=== PATIENT | female | born 1965 | race Hispanic/Latino ===

== ENCOUNTER 2019-06-04 17:51 | Emergency (ER) | payer OTHER ==
--- NOTE | 2019-06-04 18:59 | RAD REPORT ---
EXAM DESCRIPTION: RAD - Shoulder Left 2 View - 06/04/2019 6:55 pm CLINICAL HISTORY: PAIN COMPARISON: No comparisons FINDINGS: No fracture or dislocation seen.
--- NOTE | 2019-06-04 19:20 | ER ---
Nurse's Notes [facility] Name: Karie Vidal Age: 54 yrs Sex: Female : 1965 Arrival Date: 06/04/2019 Time: 17:54 Bed 30 Private MD: Nico Mcdermott Diagnosis: Fall on same level from slipping, tripping and stumbling;Pain in left shoulder Presentation: 06/04 18:13 Presenting complaint: Patient states: " My grandson was under my feet and I fell, I ph landed on my knees and I felt something pop in my L shoulder." C/O L shoulder pain, decreased ROM in shoulder, no obvious deformity. Transition of care: patient was not received from another setting of care. Onset of symptoms was June 04, 2019. Risk Assessment: Do you want to hurt yourself or someone else? Patient reports no desire to harm self or others. Initial Sepsis Screen: Does the patient meet any 2 criteria? No. Patient's initial sepsis screen is negative. Does the patient have a suspected source of infection? No. Patient's initial sepsis screen is negative. 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 18:13 Method Of Arrival: Ambulatory ph 18:13 Acuity: ALETA 4 ph Historical: - Allergies: 18:16 PENICILLINS; ph - PMHx: 18:16 GERD; Headaches; TIA; Hypertension; Hyperlipidemia; ph - PSHx: 18:16 ; gastric sleeve; ph Assessment: 19:33 Reassessment: Patient appears in no apparent distress at this time. Patient is alert, ca1 oriented x 3, equal unlabored respirations, skin warm/dry/pink. Vital Signs: 18:16 BP 127 / 85; Pulse 68; Resp 18; Temp 97.9; Pulse Ox 98% on R/A; Weight 108.86 kg; ph Height 5 ft. 6 in. (167.64 cm); Pain 3/10; 19:33 BP 112 / 86; Pulse 72; Resp 17 S; Pulse Ox 100% on R/A; ca1 18:16 Body Mass Index 38.74 (108.86 kg, 167.64 cm) ph ED Course: 17:54 Patient arrived in ED. mr 17:54 Nico Mcdermott MD is Private Physician. mr 18:06 Velvet Hamilton FNP-C [facility]. kb 18:06 Lance Ceasr MD is Attending Physician. kb 18:08 Olu Yanez is Primary Nurse. 18:15 Triage completed. ph 18:17 Arm band placed on Patient placed in an exam room. ph 18:53 Shoulder Left (2 View) XRAY In Process Unspecified. EDMS 19:20 Nico Mcdermott MD is Referral Physician. kb 19:35 No provider procedures requiring assistance completed. Patient did not have IV access ca1 during this emergency room visit. Sling applied to left arm. Administered Medications: No medications were administered Outcome: 19:20 Discharge ordered by . kb 19:35 Discharged to home ambulatory. ca1 19:35 Condition: stable 19:35 Discharge instructions given to patient, Instructed on discharge instructions, follow up and referral plans. medication usage, Demonstrated understanding of instructions, follow-up care, medications, Prescriptions given X 1. 19:41 Patient left the ED. ca1 Signatures: Dispatcher [employer] EDMI Velvet Hamilton FNP-C FNP-Ckb Rivera, Mary mr Renata Sahni, RN RN Olu Yanez Christine Salazar RN RN ca1
--- NOTE | 2019-06-04 19:21 | EDPHYS ---
Physician Documentation [facility] Name: Karie Vidal Age: 54 yrs Sex: Female : 1965 Arrival Date: 06/04/2019 Time: 17:54 Bed 30 Private MD: Nico Mcdermott ED Physician Lance Cesar HPI: 06/04 21:21 This 54 yrs old Female presents to ER via Ambulatory with complaints of Fall kb Injury. 21:21 Details of fall: The patient fell from an upright position, while walking. Onset: The kb symptoms/episode began/occurred just prior to arrival. Associated injuries: The patient sustained anterior aspect of left shoulder, decreased range of motion, painful injury. Severity of symptoms: At their worst the symptoms were moderate, in the emergency department the symptoms are unchanged. The patient has not experienced similar symptoms in the past. The patient has not recently seen a physician. Pt reports her grandson got under her feet and she fell, injuring left shoulder. Reports she felt like it popped into place when she got up. Still has pain with movement . Historical: - Allergies: 18:16 PENICILLINS; ph - PMHx: 18:16 GERD; Headaches; TIA; Hypertension; Hyperlipidemia; ph - PSHx: 18:16 ; gastric sleeve; ph ROS: 21:20 Constitutional: Negative for fever, chills, and weight loss, Neck: Negative for injury, kb pain, and swelling, Cardiovascular: Negative for chest pain, palpitations, and edema, Respiratory: Negative for shortness of breath, cough, wheezing, and pleuritic chest pain, Abdomen/GI: Negative for abdominal pain, nausea, vomiting, diarrhea, and constipation, Back: Negative for injury and pain, Skin: Negative for injury, rash, and discoloration, Neuro: Negative for headache, weakness, numbness, tingling, and seizure. 21:20 MS/extremity: Positive for decreased range of motion, pain, tenderness, of the anterior aspect of left shoulder. Exam: 21:20 Constitutional: This is a well developed, well nourished patient who is awake, alert, kb and in no acute distress. Head/Face: Normocephalic, atraumatic. ENT: Nares patent. No nasal discharge, no septal abnormalities noted. Tympanic membranes are normal and external auditory canals are clear. Oropharynx with no redness, swelling, or masses, exudates, or evidence of obstruction, uvula midline. Mucous membranes moist. Neck: Trachea midline, no thyromegaly or masses palpated, and no cervical lymphadenopathy. Supple, full range of motion without nuchal rigidity, or vertebral point tenderness. No Meningismus. Chest/axilla: Normal chest wall appearance and motion. Nontender with no deformity. No lesions are appreciated. Cardiovascular: Regular rate and rhythm with a normal S1 and S2. No gallops, murmurs, or rubs. Normal PMI, no JVD. No pulse deficits. Respiratory: Lungs have equal breath sounds bilaterally, clear to auscultation and percussion. No rales, rhonchi or wheezes noted. No increased work of breathing, no retractions or nasal flaring. Abdomen/GI: Soft, non-tender, with normal bowel sounds. No distension or tympany. No guarding or rebound. No evidence of tenderness throughout. Skin: Warm, dry with normal turgor. Normal color with no rashes, no lesions, and no evidence of cellulitis. Neuro: Awake and alert, GCS 15, oriented to person, place, time, and situation. Cranial nerves II-XII grossly intact. Motor strength 5/5 in all extremities. Sensory grossly intact. Cerebellar exam normal. Normal gait. 21:20 Musculoskeletal/extremity: Extremities: grossly normal except: noted in the anterior aspect of left shoulder: decreased ROM, pain, tenderness, ROM: limited active range of motion due to pain, in the anterior aspect of left shoulder, Circulation is intact in all extremities. Sensation intact. Vital Signs: 18:16 BP 127 / 85; Pulse 68; Resp 18; Temp 97.9; Pulse Ox 98% on R/A; Weight 108.86 kg; ph Height 5 ft. 6 in. (167.64 cm); Pain 3/10; 19:33 BP 112 / 86; Pulse 72; Resp 17 S; Pulse Ox 100% on R/A; ca1 18:16 Body Mass Index 38.74 (108.86 kg, 167.64 cm) ph MDM: 18:06 Patient medically screened. kb 21:20 Data reviewed: vital signs, nurses notes. Data interpreted: Pulse oximetry: on room air kb is 100 %. Interpretation: normal. Counseling: I had a detailed discussion with the patient and/or guardian regarding: the historical points, exam findings, and any diagnostic results supporting the discharge/admit diagnosis, radiology results, the need for outpatient follow up, a family practitioner, to return to the emergency department if symptoms worsen or persist or if there are any questions or concerns that arise at home. 06/04 18:08 Order name: Shoulder Left (2 View) XRAY; Complete Time: 19:12 kb 06/04 19:36 Order name: Sling; Complete Time: 19:41 kb Administered Medications: No medications were administered Disposition: 06/05 07:12 Co-signature as Attending Physician, Lance Cesar MD I agree with the assessment and kdr plan of care. Disposition: 06/04/19 19:20 Discharged to Home. Impression: Fall on same level from slipping, tripping and stumbling, Pain in left shoulder. - Condition is Stable. - Discharge Instructions: Shoulder Pain, [id number], Fall Prevention in the Home, [id number]. - Prescriptions for Diclofenac Sodium 75 mg Oral Tablet, Delayed Release (E.C.) - take 1 tablet by ORAL route 2 times per day As needed; 30 tablet. - Medication Reconciliation Form, Thank You Letter, Antibiotic Education, Prescription Opioid Use form. - Follow up: Emergency Department; When: As needed; Reason: Worsening of condition. Follow up: Nico Mcdermott MD; When: 2 - 3 days; Reason: Recheck today's complaints, Continuance of care, Re-evaluation by your physician. Signatures: Dispatcher [employer] EDNV Velvet Hamilton, VICE PRESIDENT OF INSTRUCTION-C VICE PRESIDENT OF INSTRUCTION-Lance Blanco MD MD [facility] Renata Sahni RN RN Christine Salazar RN RN ca1 Corrections: (The following items were deleted from the chart) 06/04 19:41 19:20 06/04/2019 19:20 Discharged to Home. Impression: Fall on same level from ca1 slipping, tripping and stumbling; Pain in left shoulder. Condition is Stable. Forms are Medication Reconciliation Form, Thank You Letter, Antibiotic Education, Prescription Opioid Use. Follow up: Emergency Department; When: As needed; Reason: Worsening of condition. Follow up: Nico Mcdermott; When: 2 - 3 days; Reason: Recheck today's complaints, Continuance of care, Re-evaluation by your physician. kb
[2019-06-04 19:46] VITALS: TEMP 97.9
[2019-06-04 19:47] VITALS: BP 112/86; O2SAT 100
== END 2019-06-04 19:41 | disposition home or self-care (01) ==
LOC: ER 17:51
DX: M25.512 Pain in left shoulder (principal); W01.0XXA Fall on same level from slipping, tripping and stumbling without subsequent striking against object, initial encounter; Y93.01 Activity, walking, marching and hiking; Y92.9 Unspecified place or not applicable; I10 Essential (primary) hypertension; Z88.0 Allergy status to penicillin
CPT/HCPCS: 99283